=== PATIENT | male | born 1980 ===

== ENCOUNTER 2021-11-13 15:45 | Emergency (ER) | payer SELFPAY ==
[2021-11-13] MEDS ORDERED: TETANUS,DIPH,PERTUSS(ACELL) VACCINE 0.5 ML SYRINGE IM ONE (15:48)
[2021-11-13] MEDS ORDERED: MORPHINE 4 MG/1 ML INJ IV ONE (15:49)
[2021-11-13 15:54] VITALS: BP 128/94
--- NOTE | 2021-11-13 16:30 | XRay Report ---
EXAMINATION: Right finger radiograph, 2 views, 11/13/2021 CLINICAL INFORMATION / INDICATION: Trauma/amputation of the fifth digit. COMPARISON: None FINDINGS: There is an oblique nondisplaced fracture through the distal tuft of the fifth digit. Surro unding soft tissue injury/swelling is noted. No additional acute bony abnormality is identified. IMPRESSION: Fracture and associated soft tissue injury to the distal fifth digit. Signer Name: Demetria Lim MD Signed: 11/13/2021 4:25 PM Workstation Name: [id number]
--- NOTE | 2021-11-13 16:58 | Emergency Department Report ---
ED Upper Extremity Inj HPI - General Chief Complaint: Extremity Injury, Upper Stated Complaint: RIGHT PINKEY FINGER INJURY Time Seen by Provider: 11/13/21 15:48 Source: patient Mode of arrival: Ambulatory Limitations: No Limitations - History of Present Illness Initial Comments: This is a 40-year-old male nontoxic, well nourished in appearance, no acute signs of distress presents to the ED with c/o of right fifth distal fingertip amputation that occurred prior to arrival today. 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 Patient denies any other injuries or symptoms. Patient stated bleeding is under control. Denies any numbness, tingling, fever, chills, nausea, vomiting, chest pain, shortness of breath, headache or stiff neck. Patient denies any allergies to significant past medical history. Patient is that he is not up-to-date with tetanus. Marline sticker hand present for translation purposes during physical exam, interview and discharge plan of care. MD Complaint: Injury to:: right, finger -: This afternoon Other Injuries: none Place: work Severity scale (0 -10): 8 Improves With: immobilization Worsens With: movement of extremity Associated Symptoms: denies other symptoms. denies: weakness, numbness, neck pain, suspects foreign body, nausea/vomiting, heard/felt popping sensat - Related Data Previous Rx's Medication Instructions Recorded Last Taken Type Acetaminophen/Codeine [Tylenol 1 tab PO Q6H PRN #12 tab 11/13/21 Unknown Rx /Codeine # 3 tab] cephALEXin [Keflex] 500 mg PO Q6HR #28 capsule 11/13/21 Unknown Rx Allergies Allergy/AdvReac Type Severity Reaction Status Date / Time No Known Allergies Allergy Unverified 11/13/21 15:49 ED Review of Systems ROS: Stated complaint: RIGHT PINKEY FINGER INJURY Other details as noted in HPI Comment: All other systems reviewed and negative Constitutional: denies: chills, fever Eyes: denies: eye pain, eye discharge, vision change ENT: denies: ear pain, throat pain Respiratory: denies: cough, shortness of breath, wheezing Cardiovascular: denies: chest pain, palpitations Endocrine: no symptoms reported Gastrointestinal: denies: abdominal pain, nausea, diarrhea Genitourinary: denies: urgency, dysuria Musculoskeletal: denies: back pain, joint swelling, arthralgia Skin: denies: rash, lesions Neurological: denies: headache, weakness, paresthesias Psychiatric: denies: anxiety, depression Hematological/Lymphatic: denies: easy bleeding, easy bruising ED Past Medical Hx - Medications Home Medications: Home Medications Medication Instructions Recorded Confirmed Last Taken Type Acetaminophen/Codeine [Tylenol 1 tab PO Q6H PRN #12 tab 11/13/21 Unknown Rx /Codeine # 3 tab] cephALEXin [Keflex] 500 mg PO Q6HR #28 capsule 11/13/21 Unknown Rx ED Physical Exam - General Limitations: No Limitations General appearance: alert, in no apparent distress - Head Head exam: Present: atraumatic, normocephalic - Eye Eye exam: Present: normal appearance - Neck Neck exam: Present: full ROM - Respiratory Respiratory exam: Absent: respiratory distress - Cardiovascular Cardiovascular Exam: Present: regular rate - Extremities Exam Extremities exam: Present: full ROM, tenderness, normal capillary refill. Absent: joint swelling - Expanded Upper Extremity Exam Right General: Present: normal inspection Shoulder Exam: Present: normal inspection, full ROM. Absent: tenderness, swelling Upper Arm exam: Present: normal inspection, full ROM. Absent: tenderness, swelling Elbow exam: Present: normal inspection, full ROM. Absent: tenderness, swelling Forearm Wrist exam: Present: normal inspection, full ROM. Absent: tenderness, swelling, abrasion Hand Wrist exam: Present: full ROM, tenderness, amputation. Absent: swelling, abrasion, ecchymosis, crepidus, dislocation, erythema, nail avulsion, subungual hematoma Hand L/R Back: 1 - Amputation present here Vascular: Present: normal capillary refill. Absent: vascular compromise (Neurovascular within normal limits) - Back Exam Back exam: Present: full ROM - Neurological Exam Neurological exam: Present: alert, oriented X3, normal gait - Psychiatric Psychiatric exam: Present: normal affect, normal mood - Skin Skin exam: Present: warm, dry, intact, normal color. Absent: rash ED Course Vital Signs 11/13/21 11/13/21 11/13/21 15:52 15:53 16:25 Temperature 98.5 F 98.5 F Pulse Rate 88 Respiratory 18 18 17 Rate Blood Pressure 128/94 Blood Pressure 128/94 [Right] O2 Sat by Pulse 99 Oximetry - Reevaluation(s) Reevaluation #1: 11/13/21 16:58 Patient is speaking in full sentences with no signs of distress noted. - Consultations Consultation #1: 11/13/21 16:54 Patient has been consulted with Dr. Belcher about patient history, physical exam, and imaging studies and agrees to the ED plan of care and follow-up outpatient. ED Medical Decision Making - Radiology Data [facility] [address] [place] [address] XRay Report Signed Patient: KELVIN ROSE MR#: [id number] : 1980 Acct:[id number] Age/Sex: 40 / M ADM Date: 11/13/21 Loc: ED Attending Dr: Ordering Physician: SOM JURADO NP Date of Service: 11/13/21 Procedure(s): XR finger(s) 2+V RT Accession Number(s): [id number] cc: SOM JURADO NP Fluoro Time In Minutes: EXAMINATION: Right finger radiograph, 2 views, 11/13/2021 CLINICAL INFORMATION / INDICATION: Trauma/amputation of the fifth digit. COMPARISON: None FINDINGS: There is an oblique nondisplaced fracture through the distal tuft of the fifth digit. Surrounding soft tissue injury/swelling is noted. No additional acute bony abnormality is identified. IMPRESSION: Fracture and associated soft tissue injury to the distal fifth digit. Signer Name: Demetria Lim MD Signed: 11/13/2021 4:25 PM Workstation Name: [id number] Transcribed By: EB Dictated By: Demetria Lim MD Electronically Authenticated By: Demetria Lim MD Signed Date/Time: 11/13/21 1625 DD/ 22 TD/TT: - Medical Decision Making 40-year-old male who presents with right fifth finger amputation. Patient is stable and was examined by me. Patient was consulted with orthopedic which agrees to the ED plan of care and was instructed to have the patient follow-up outpatient. Patient was treated as a open fracture with Ancef. Patient also received a tetanus booster in ER. The area has been cleaned properly and a sterile dressing has been applied as well as a frog metal splint. Patient be discharged with Keflex. Patient was instructed to follow-up with a orthopedic doctor in 2 days or if symptoms worsen and continue return to emergency room as soon as possible. At time of discharge, the patient does not seem toxic or ill in appearance. No acute signs of distress noted. Patient agrees to discharge treatment plan of care. No further questions noted by the patient. Marline sticker hand present for translation purposes during physical exam, interview and discharge plan of care. Critical care attestation.: If time is entered above; I have spent that time in minutes in the direct care of this critically ill patient, excluding procedure time. ED Disposition Clinical Impression: Amputation of right little finger Disposition: HOME / SELF CARE / HOMELESS Is pt being admited?: No Does the pt Need Aspirin: No Condition: Stable Instructions: Traumatic Finger Amputation, Living With an Amputation Additional Instructions: Follow-up with a orthopedic doctor in 2 days or if symptoms worsen and continue return to emergency room as soon as possible. No physical activity that extremity until cleared by orthopedic doctor Do not operate any machinery while taking Tylenol with codeine as this may cause drowsiness. Prescriptions: cephALEXin [Keflex] 500 mg PO Q6HR #28 capsule Acetaminophen/Codeine [Tylenol /Codeine # 3 tab] 1 tab PO Q6H PRN #12 tab PRN Reason: Pain , Severe (7-10) Referrals: PRIMARY CARE, [Primary Care Provider] - 3-5 Days MARK BELCHER MD [Staff Physician] - 11/15/21 Forms: Work/School Release Form(ED) Time of Disposition: 17:00 Print Language: WELSH
[2021-11-13] MEDS ORDERED: ceFAZolin/Water 2 GM/20 ML 2 GM/20 ML SYRINGE IV ONE (17:00)
== END 2021-11-13 18:11 | disposition home or self-care (01) ==
LOC: ED 15:45
DX: S68.126A Partial traumatic metacarpophalangeal amputation of right little finger, initial encounter (principal); W31.89XA Contact with other specified machinery, initial encounter; Y93.89 Activity, other specified; Y92.89 Other specified places as the place of occurrence of the external cause; Y99.8 Other external cause status
CPT/HCPCS: 29130; 73140; 90471; 90715; 96365; 96375; 99283; J0690; J2270